=== PATIENT | male | born 1935 | race Hispanic/Latino ===

== ENCOUNTER 2018-12-18 05:52 | Observation (INO) | payer MEDICARE ==
[2018-12-15 16:14] LABS: BASOPHILS % 0.3 % (0.0-1.0); EOSINOPHILS # (AUTO) 0.2 (0.0-0.4); EOSINOPHILS % 1.8 % (0.0-6.0); HEMATOCRIT 40.5 % (38.2-49.6); HEMOGLOBIN 13.6 g/dL (14.0-18.0); LYMPHOCYTES # (AUTO) 1.7 (1.0-3.2); LYMPHOCYTES % 14.1 % (18.0-39.1); MEAN CORPUSCULAR HGB CONC 33.6 g/dL (31-35); MEAN CORPUSCULAR VOLUME 89.2 fL (81-99); MONOCYTES # (AUTO) 1.1 (0.2-0.8); NEUTROPHILS # (AUTO) 8.7 (2.1-6.9); NEUTROPHILS % 74.4 % (38.7-80.0); PLATELET COUNT 319 x10e3/uL (140-360); RED BLOOD COUNT 4.54 x10e6/uL (4.3-5.7); RED CELL DISTRIBUTION WIDTH 13.4 % (11.7-14.4)
[2018-12-15 16:24] LABS: INR 0.97; PARTIAL THROMBOPLASTIN TIME 30.8 seconds (23.8-35.5); PROTHROMBIN TIME 13.4 seconds (11.9-14.5)
[2018-12-15 16:31] LABS: ANION GAP 14.3 mmol/L (8-16); BLOOD UREA NITROGEN 22 mg/dL (7-26); BUN/CREATININE RATIO 24 (6-25); CALCIUM 9.9 mg/dL (8.4-10.2); CARBON DIOXIDE 25 mmol/L (22-29); CHLORIDE 100 mmol/L (98-107); CREATININE, SERUM 0.91 mg/dL (0.72-1.25); EST GLOMERULAR FILTRATION RATE > 60 ML/MIN (60-); GLUCOSE 94 mg/dL (74-118); POTASSIUM 4.3 mmol/L (3.5-5.1); SODIUM 135 mmol/L (136-145)
--- NOTE | 2018-12-15 16:33 | Diagnostic Imaging Report ---
EXAMINATION: CHEST 2 VIEWS INDICATION: Pre-operative COMPARISON: None FINDINGS: LINES/TUBES:None LUNGS:The lungs are well-inflated. No focal consolidation or pulmonary edema. Mild medial biapical pleural parenchymal scarring. Subcentimeter left upper lung calcified granulomas. PLEURA:No pleural effusion or pneumothorax. MEDIASTINUM:The cardiomediastinal silhouette appears normal in size and shape. Atherosclerotic calcifications of the thoracic aorta. BONES/SOFT TISSUES:No acute osseous injury. ABDOMEN:No free air under the diaphragm. IMPRESSION: No focal pneumonia or pulmonary edema. Signed by: Mio Monsalve MD on 12/15/2018 4:30 PM
[~2018-12-18] VITALS: Ht 160 cm; Wt 63.5 kg
[~2018-12-18 05:52] MED LIST: ANORO ELLIPTA1 EACH INH; AVODART0.5 MG PO; FLOMAX0.4 MG PO; SIMVASTATIN20 MG PO
--- OUTSIDE RECORDS SUMMARY | 2018-12-18 05:57 | XMS REPORT ---
Author [facility] Address Unknown Phone Unavailable Care Team Providers Care Patient Office Rep Name Role Phone Jesus Alberto SUERO Unavailable Unavailable Payers Payer Name Policy Type Policy Number Effective Date Expiration Date Problems This patient has no known problems. Allergies, Adverse Reactions, Alerts Allergy Name Allergy Type Status Severity Reaction(s) Onset Date Inactive Date Treating Clinician Comments No Known Allergies DA Active U 2016-01-22 00:00:00 Medications This patient has no known medications. Results Test Description Test Time Test Comments Text Results Atomic Results Result Comments CHEST 2 VIEWS 2018-12-15 16:29:00 [facility] [address] [place] [address] Patient Name: SAMINA ARMAS MR #: [id number] : 1935 Age/Sex: 82/M Req #: [id number] Adm Physician: Ordered by: RAHEEM SUERO MD Report #: [id number] Location: OR Room/Bed: Procedure: [id number] DX/CHEST 2 VIEWS Exam Date: Exam Time: REPORT STATUS: Signed EXAMINATION: CHEST 2 VIEWS INDICATION: Pre-operative COMPARISON: None FINDINGS: LINES/TUBES:None LUNGS:The lungs are well- inflated. No focal consolidation or pulmonary edema. Mild medial biapical pleural parenchymal scarring. Subcentimeter left upper lung calcified granulomas. PLEURA:No pleural effusion or pneumothorax. MEDIASTINUM:The cardiomediastinal silhouette appears normal in size and shape. Atherosclerotic calcifications of the thoracic aorta. BONES/SOFT TISSUES:No acute osseous injury. ABDOMEN:No free air under the diaphragm. IMPRESSION: No focal pneumonia or pulmonary edema. Signed by: Nathanael Monsalve MD on 12/15/2018 4:30 PM Dictated By: NATHANAEL MONSALVE MD 29 Transcribed By: MIGUEL on 12/15/181629 COPY TO: RAHEEM SUERO MD URINALYSIS COMPLETE 2018-12-07 18:32:00 UA COLOR (test code=COLU) YELLOW YELLOW UA APPEARANCE (test code=APPU) CLEAR CLEAR UA GLUCOSE DIPSTICK (test code=DGLUU) NEGATIVE mg/dL NEGATIVE UA BILIRUBIN DIPSTICK (test code=BILU) NEGATIVE NEGATIVE UA KETONE DIPSTICK (test code=KETU) NEGATIVE mg/dL NEGATIVE UA SPECIFIC GRAVITY (test code=SGU) 1.015 1.001-1.035 UA BLOOD DIPSTICK (test code=NEETA) 3+ (Large) NEGATIVE UA PH DIPSTICK (test code=MELISSA) 5.5 5.0-8.0 UA PROTEIN DIPSTICK (test code=PROU) NEGATIVE mg/dL Neg-15 UA UROBILINIOGEN DIPSTICK (test code=URO) 0.2 mg/dL 0.0-0.2 UA NITRITE DIPSTICK (test code=CARLOZ) NEGATIVE NEGATIVE UA LEUKOCYTE ESTERASE DIPSTICK (test code=LEUU) NEGATIVE uL NEGATIVE UA MICROSCOPIC NEEDED? (test code=UAMICRO) YES UA WBC (test code=WBCU) 0-5 per HPF 0-5 UA RBC (test code=RBCU) 3-5 per HPF 0-5 UA EPITHELIAL CELLS (test code=EPIU) Rare (0-1/hpf) per HPF Few UA BACTERIA (test code=BACU) FEW per HPF NONE UA MUCUS (test code=MUCU) FEW per LPF NONE-FEW Urine Source? Clean CatchURINALYSIS [id number] 18:29:00* Test Item Value Reference Range Comments UA COLOR (test code=COLU) YELLOW YELLOW UA APPEARANCE (test code=APPU) CLEAR CLEAR UA GLUCOSE DIPSTICK (test code=DGLUU) NEGATIVE mg/dL NEGATIVE UA BILIRUBIN DIPSTICK (test code=BILU) NEGATIVE NEGATIVE UA KETONE DIPSTICK (test code=KETU) NEGATIVE mg/dL NEGATIVE UA SPECIFIC GRAVITY (test code=SGU) 1.015 1.001-1.035 UA BLOOD DIPSTICK (test code=NEETA) 3+ (Large) NEGATIVE UA PH DIPSTICK (test code=MELISSA) 5.5 5.0-8.0 UA PROTEIN DIPSTICK (test code=PROU) NEGATIVE mg/dL Neg-15 UA UROBILINIOGEN DIPSTICK (test code=URO) 0.2 mg/dL 0.0-0.2 UA NITRITE DIPSTICK (test code=CARLOZ) NEGATIVE NEGATIVE UA LEUKOCYTE ESTERASE DIPSTICK (test code=LEUU) NEGATIVE uL NEGATIVE UA MICROSCOPIC NEEDED? (test code=UAMICRO) UA WBC (test code=WBCU) per HPF 0-5 UA RBC (test code=RBCU) per HPF 0-5 UA EPITHELIAL CELLS (test code=EPIU) per HPF Few UA BACTERIA (test code=BACU) per HPF NONE Urine Source? Clean CatchBASIC METABOLIC [id number] 18:15:00* Test Item Value Reference Range Comments SODIUM (test code=NA) 136 mmol/L 128-145 POTASSIUM (test code=K) 3.7 mmol/L 3.5-5.1 CHLORIDE (test code=CL) 99.0 mmol/L 98-107 CARBON DIOXIDE (test code=CO2) 29.2 mmol/L 22-29 ANION GAP (test code=GAP) 12 mmol/L 10-20 GLUCOSE (test code=GLU) 173 mg/dL 70-110 BLOOD UREA NITROGEN (test code=BUN) 19 mg/dL 7-22 GLOMERULAR FILTRATION RATE (test code=GFR) 56 mL/min >=60 Estimated GFR by using Modified MDRD formula.Chronic kidney disease is defined as either kidney damageor GFR <60 mL/min/1.73 m2 for >3 months. CREATININE (test code=CREAT) 1.24 mg/dL 0.55-1.3 BUN/CREATININE RATIO (test code=BUN/CREA) 15.3 10-20 CALCIUM (test code=CA) 8.9 mg/dL 8.0-10.5
[2018-12-18] MEDS ORDERED: CEFTRIAXONE SOD 1 GM/NS 50 ML 50 ML IV ONE (06:45)
[2018-12-18] MEDS ORDERED: B&O 60MG R/S 60 MG SUPP PR ONE (08:20)
--- NOTE | 2018-12-18 10:00 | NUR ---
RCD PT FROM PACU BY BED PT IS ALERT AND ORIENTED PT ON CONTINUOUS BLADDER IRRIGATION PINK COLOR URINE PT RESTING ON BED VITALS CHECKED ADMISSION ASSESSMENT AND HISTORY DONE PT IS MAINLY GREEK SPEAKING DAUGHTER IS WITH HIM IV PATENT BY SALINE FLUSH INSTRUCTED THE PT AND FAMILY REGARDING HOSPITAL POLICY AND ROUTINE BED LOW AND LOCKED CALL LIGHT IN REACH
[2018-12-18 11:22] VITALS: BP 179/77
[2018-12-18 11:30] VITALS: BP 129/77
[2018-12-18 11:36] VITALS: BP 150/77
--- NOTE | 2018-12-18 11:53 | NUR ---
PAGED DR SUERO TO GET DIET ORDER
[2018-12-18] MEDS ORDERED: DEXTROSE 5%/0.45% SOD CHL 1,000 ML IV ONE (13:15)
[2018-12-18] MEDS ORDERED: ACETAMINOPHEN/CODEINE 300MG - 30MG TAB PO PRN (13:15)
[2018-12-18] MEDS ORDERED: [UNRECOGNIZED DRUG - OTHER] INH SCH (13:45)
[2018-12-18] MEDS ORDERED: [UNRECOGNIZED DRUG - OTHER] INH PRN (13:45)
[2018-12-18] MEDS ORDERED: ONDANSETRON HCL INJ 2MG/ML 2ML 2 MG/ML VIAL ONE (14:01)
[2018-12-18] MEDS ORDERED: DEXAMETHASONE SOD PHOS INJ 4 MG/ML VIAL ONE (14:01)
[2018-12-18] MEDS ORDERED: SEVOFLURANE INHAL SOLN 250 ML PEN BTL ONE (14:01)
[2018-12-18] MEDS ORDERED: PROPOFOL IV EMULSION 10 MG/ML 20 ML VIAL ONE (14:01)
[2018-12-18] MEDS ORDERED: FENTANYL CITRATE/PF 100MCG/2 ML INJ ONE (14:23)
--- NOTE | 2018-12-18 16:08 | Operative Report ---
DATE OF PROCEDURE: 12/18/2018 SURGEON: Pelon Zimmerman MD PREOPERATIVE DIAGNOSIS: Urinary retention. POSTOPERATIVE DIAGNOSIS: Urinary retention. PROCEDURES PERFORMED: 1. Cystoscopy. 2. Transurethral resection of the prostate. ANESTHESIA: General. ESTIMATED BLOOD LOSS: Minimal. INDICATIONS: Mr. eHrman Brown is an 82-year-old man with history of urinary retention, who has failed conservative management with maximal medical therapy. Now presents for definitive surgical management of this problem. PROCEDURE IN DETAIL: The patient was brought into the operating room, placed in supine position. After administration of general anesthesia, he was placed in dorsal lithotomy position and prepped and draped in usual sterile fashion. Cystourethroscopy was performed using 20-Bangladeshi cystoscope. The anterior and posterior urethra were noted to be normal. The prostate revealed mild trilobar hyperplasia, but the prostatic urethra was oozing a bit short. Upon entrance into the bladder, the ureteral orifices were in normal anatomic position and produced clear efflux. There were grade 2 trabeculations with early cellule formation throughout. There were no mucosal lesions identified. The bladder was left full, and the cystoscope and the sheath were removed. A 26-Bangladeshi resectoscope sheath was then placed in a retrograde fashion and Wugly resectoscope was used to perform the procedure. Beginning at the 1 o'clock position and proceeding in a clockwise fashion down to the 6 o'clock position, all of the adenomatous tissue between the bladder neck and the veru were resected down to the level of the surgical capsule. There was no gross penetration or perforation of the capsule noted. Hemostasis was obtained using electrocautery device. A similar procedure was performed on the contralateral side in a counter-clockwise fashion, beginning at the 11 o'clock position and again ending at the 6 o'clock position. Again, there was no gross penetration or perforation of the capsule. Again, hemostasis was obtained using electrocautery device. The residual tissue on the roof and floor of the gland were then resected free and Ellik evacuator was used to remove all chips. These were sent to pathology for microscopic analysis. Visualization of the bladder neck and the veru . The bladder was left full, and the resectoscope and the sheath were removed. The patient was noted to have brisk urinary flow with coude. The urinary efflux was blood-tinged. A 22-Bangladeshi 3-way coude catheter was then placed in a retrograde fashion and the balloon inflated with approximately 40 mL. He was started on continuous bladder irrigation and returned to supine position. Anesthesia was reversed and he was transferred to a bed and taken to the Postanesthesia Care Unit in good condition. Of note, the needle and instrument count were correct at the conclusion of the case. MD ISIDRO Dela Cruz/KASH /[id number]
[2018-12-18 16:55] VITALS: BP 134/86
--- NOTE | 2018-12-18 17:00 | NUR ---
PT ON CONTINUOUS BLADDER IRRIGATION PINK COLOR URINE COMING OUT PT RESTING ON BED
--- NOTE | 2018-12-18 18:39 | NUR ---
PT RESTING ON BED BED SIDE REPORT GIVEN TO ONCOMING NURSE
[2018-12-18 19:25] VITALS: BP 133/83
--- NOTE | 2018-12-18 19:30 | NUR ---
ROUNDS DONE WITH AM NURSE, PATIENT RESTING, NO DISTRESS NOTED. CALL LIGHT REMAIN IN REACH.
[2018-12-18] MEDS ORDERED: SIMVASTATIN 20 MG TAB PO SCH (21:00)
[2018-12-18] MEDS ORDERED: AMOXICILLIN/CLAVULANATE K 500 MG TAB PO SCH (21:00)
[2018-12-18] MEDS: AMOXICILLIN/CLAVULANATE K 875 MG TAB PO SCH (21:49)
[2018-12-18 22:28] VITALS: BP 133/83
[2018-12-19] VITALS: BP 121/77
[2018-12-19 04:00] VITALS: BP 111/70
[2018-12-19 05:56] LABS: ANION GAP 13.3 mmol/L (8-16); BLOOD UREA NITROGEN 17 mg/dL (7-26); BUN/CREATININE RATIO 17 (6-25); CALCIUM 9.4 mg/dL (8.4-10.2); CARBON DIOXIDE 26 mmol/L (22-29); CHLORIDE 102 mmol/L (98-107); CREATININE, SERUM 0.99 mg/dL (0.72-1.25); EST GLOMERULAR FILTRATION RATE > 60 ML/MIN (60-); GLUCOSE 108 mg/dL (74-118); POTASSIUM 4.3 mmol/L (3.5-5.1); SODIUM 137 mmol/L (136-145)
--- NOTE | 2018-12-19 07:19 | NUR ---
DR. SUERO VISITED, D/C BLACKMAN CATHETER. ROUNDS DONE WITH NURSE. PATIENT INFORMED TO LET THE NURSE OR TECH KNOW ONCE HE'S URINATED.
[2018-12-19 07:49] VITALS: BP 137/87
[2018-12-19 08:30] VITALS: BP 137/87
[2018-12-19] MEDS: AMOXICILLIN/CLAVULANATE K 875 MG TAB PO SCH (08:50)
[2018-12-19] MEDS ORDERED: TYLENOL WITH C1 EACH PO ×2 (11:08→11:15)
[2018-12-19] MEDS ORDERED: AUGMENTIN 875-1 EACH PO (11:09)
[2018-12-19 11:35] VITALS: BP 142/92
== END 2018-12-19 12:05 | disposition home or self-care (01) ==
LOC: OR 05:52 → PACU V 09:20 → MED/SURG2 09:54
PROVIDERS: ADMIT Urology; ATTEND Urology
DX: N40.1 Benign prostatic hyperplasia with lower urinary tract symptoms (principal); R33.8 Other retention of urine; Z01.810 Encounter for preprocedural cardiovascular examination; Z01.812 Encounter for preprocedural laboratory examination; Z01.811 Encounter for preprocedural respiratory examination; I10 Essential (primary) hypertension; E78.5 Hyperlipidemia, unspecified
CPT/HCPCS: 36415 ×2; 52601; 71046; 80048 ×2; 82948; 85025; 85610; 85730; 88305; 93005; C1758; G0378 ×2; J0696; J1100; J2405; J2704; J3010